=== PATIENT | female | born 1995 | race Caucasian/White ===

== ENCOUNTER 2016-10-24 19:58 | Emergency (ER) | payer OTHER ==
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
--- NOTE | 2016-10-24 21:57 | RAD ---
EXAM DESCRIPTION: XR KNEE 1-2 VIEWS CLINICAL HISTORY: 21-year-old male with right knee pain. No history of injury. COMPARISON: 10/11/2016. TECHNIQUE: Two views of the right knee were obtained in AP, and lateral projections. FINDINGS: There is no fracture or dislocation. The joint spaces are preserved. No soft tissue abnormalities are seen. IMPRESSION: No acute radiographic abnormality. Electronically signed by: Lacie Chapin MD 10/24/2016 21:55
[2016-10-24] MEDS ORDERED: IBUPROFEN 200 MG TAB PO ONE (22:05)
[2016-10-24 22:20] VITALS: BP 118/81; TEMP 97.8; O2SAT 99
== END 2016-10-24 22:20 | disposition home or self-care (01) ==
LOC: ER 19:58
DX: M25.561 Pain in right knee (principal); J45.909 Unspecified asthma, uncomplicated; Z87.891 Personal history of nicotine dependence; Z79.899 Other long term (current) drug therapy

== ENCOUNTER → 2016-11-09 | Outpatient (CLI) | payer OTHER ==
--- NOTE | 2016-11-09 14:04 | RAD ---
EXAM DESCRIPTION: Pelvis series. CLINICAL HISTORY: Right hip pain COMPARISON: None. TECHNIQUE: One view was submitted for evaluation. FINDINGS: No fracture, dislocation, or radiopaque foreign body is seen. Pelvic ring appears intact. Soft tissues are unremarkable. IMPRESSION: No significant abnormality. Electronically signed by: Geoffrey Gonzales MD 11/09/2016 14:03
== END ==
LOC: RAD 08:11
PROVIDERS: ATTEND Orthopaedic Surgery
DX: M25.551 Pain in right hip (principal)

== ENCOUNTER → 2017-01-11 | Outpatient (CLI) | payer OTHER ==
--- NOTE | 2017-01-13 22:24 | MRI ---
MRI right knee without contrast INDICATION: Right knee pain foot numbness internal derangement of knee TECHNIQUE: Noncontrast MR imaging right knee standard protocol FINDINGS: There is a small to moderate joint effusion. The common peroneal nerve appears intact. Normal patellofemoral alignment. Cruciate ligaments are intact. Extensor tendons are intact. No discrete meniscal tear. No focal high-grade chondral lesions. Collateral ligaments are intact. IMPRESSION: Small to moderate joint effusion No high-grade chondral lesions No acute internal derangement Electronically signed by: Navjot Warren MD 01/13/2017 10:23 PM CDT
== END | disposition home or self-care (01) ==
LOC: MRI 13:55
PROVIDERS: ATTEND Orthopaedic Surgery
DX: M23.91 Unspecified internal derangement of right knee (principal)

== ENCOUNTER → 2017-03-08 | Outpatient (CLI) | payer OTHER | END | disposition home or self-care (01) | LOC: LAB.O 14:56 | PROVIDERS: ATTEND Obstetrics & Gynecology | DX: R23.2 Flushing (principal); R79.9 Abnormal finding of blood chemistry, unspecified ==

== ENCOUNTER 2017-03-25 14:08 | Emergency (ER) | payer OTHER ==
[2017-03-25] MEDS ORDERED: TETANUS,DIPHTHERIA,PERTUSSIS 1 EA SYG IM ONE (14:41)
--- NOTE | 2017-03-25 14:44 | ED.PDOC ---
History of Present Illness - General Chief Complaint: Upper Extremity Injury Stated Complaint: cut thumb of left hand Time Seen by Provider: 03/25/17 14:10 Source: patient Exam Limitations: no limitations - History of Present Illness Initial Comments: The patient is a 22-year-old female presenting to the emergency room due to a 4 mm laceration to the inner aspect of her distal left thumb. No significant loss of sensation. The wound is largely hemostatic by time of arrival. Estimated blood loss prior approximately 5 cc. She is not up-to-date on tetanus. 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 Timing/Duration: momentarily Severity: mild Improving Factors: nothing Worsening Factors: nothing Associated Symptoms: denies symptoms Allergies/Adverse Reactions: Allergies NO KNOWN ALLERGY Allergy (Verified 10/24/16 20:16) Home Medications: Ambulatory Orders Control Pill 10/09/16 Prednisone [Deltasone] 20 mg PO DAILY #5 tab 10/09/16 Naproxen [Naprosyn] 500 mg PO BID #30 tab 10/24/16 Review of Systems - Review of Systems Constitutional: States: no symptoms reported EENTM: States: no symptoms reported Respiratory: States: no symptoms reported Cardiology: States: no symptoms reported Gastrointestinal/Abdominal: States: no symptoms reported Genitourinary: States: no symptoms reported Musculoskeletal: States: no symptoms reported Skin: States: see HPI Neurological: States: no symptoms reported Endocrine: States: no symptoms reported All other Systems: No Change from Baseline Past Medical History (General) - Patient Medical History Hx Asthma: Yes Hx Congestive Heart Failure: No Hx Hypertension: No Hx Diabetes: No - Vaccination History Hx Tetanus, Diphtheria Vaccination: No Hx Influenza Vaccination: No Hx Pneumococcal Vaccination: No - Social History Hx Tobacco Use: Yes Hx Alcohol Use: Yes Hx Substance Use: No Hx Substance Use Treatment: No Hx Depression: No - Female History Patient : No Family Medical History - Family History Mother Family History: Unknown Living Status: Unknown Hx Family Asthma: Yes - brother Physical Exam - Physical Exam General Appearance: Alert, Comfortable, No apparent distress Eye Exam: bilateral normal Ears, Nose, Throat: hearing grossly normal Neck: full range of motion Respiratory: no respiratory distress, no accessory muscle use Cardiovascular/Chest: normal peripheral pulses, no edema, other - regular rate Peripheral Pulses: radial,right: 2+, radial,left: 2+ Rectal Exam: deferred Extremity: normal range of motion, no pedal edema, normal capillary refill Neurologic: alert, normal mood/affect, oriented x 3 Skin Exam: normal color - ith the exception of the laceration as described above Progress - Progress Progress: 03/25/17 14:44 the patient is a 22-year-old female sustaining a 4 mm laceration to the inner aspect of her left distal thumb. The wound was cleaned and a Steri- Strip was applied for closure. The patient needs to keep it dry for 24 hours. Tetanus injection was given due to the patient being past due. ER warnings were given for any worsening. Monitor for any evidence of infection. Steri- Strip can come off in around a week. Departure - Departure Clinical Impression: Laceration of finger Qualifiers: Encounter type: initial encounter Qualified Code(s): S61.219A - Laceration without foreign body of unspecified finger without damage to nail, initial encounter Disposition: Discharge to Home or Self Care Condition: Fair Departure Forms: ED Discharge - Pt. Copy, Patient Portal Self Enrollment Instructions: DI for Laceration Repair -- Simple Diet: regular diet Activity: increase activity as tolerated Referrals: Ryanne John NP [Primary Care Provider] - 1-2 Weeks Home Medications: Ambulatory Orders Control Pill 10/09/16 Prednisone [Deltasone] 20 mg PO DAILY #5 tab 10/09/16 Naproxen [Naprosyn] 500 mg PO BID #30 tab 10/24/16 Additional Instructions: the patient is a 22-year-old female sustaining a 4 mm laceration to the inner aspect of her left distal thumb. The wound was cleaned and a Steri- Strip was applied for closure. The patient needs to keep it dry for 24 hours. Tetanus injection was given due to the patient being past due. ER warnings were given for any worsening. Monitor for any evidence of infection. Steri- Strip can come off in around a week.
[2017-03-25 14:47] VITALS: BP 118/76; TEMP 98.5; O2SAT 99
== END 2017-03-25 15:20 | disposition home or self-care (01) ==
LOC: ER 14:08
DX: S61.012A Laceration without foreign body of left thumb without damage to nail, initial encounter (principal); Z23 Encounter for immunization; Z87.891 Personal history of nicotine dependence; W26.0XXA Contact with knife, initial encounter; Y93.G1 Activity, food preparation and clean up; Y92.009 Unspecified place in unspecified non-institutional (private) residence as the place of occurrence of the external cause; Y99.0 Civilian activity done for income or pay

== ENCOUNTER → 2017-04-12 | Outpatient (CLI) | payer OTHER ==
--- NOTE | 2017-04-14 07:39 | RAD ---
Procedure: XR CHEST 2 VIEWS Exam Date: 04/12/2017 Ordering Provider: Kavitha Collins Clinical Indication: ASTHMA ATTACK. DECREASED LUNG SOUNDS. R09.89 Comparison: 08/21/2006 Findings: Cardiac silhouette: Normal Pulmonary vasculature : Normal Mediastinal contour: Normal Aortic contour: Normal Focal lung consolidation: None Pleural effusion: None Pneumothorax: None Acute bony or soft tissue abnormality: None Impression: 1. No acute abnormalities in the chest. Electronically signed by: Mark Montalvo MD 04/14/2017 7:38 AM CDT
== END | disposition home or self-care (01) ==
LOC: RAD 16:59
PROVIDERS: ATTEND Nurse Practitioner Family
DX: J45.909 Unspecified asthma, uncomplicated (principal); R09.89 Other specified symptoms and signs involving the circulatory and respiratory systems

== ENCOUNTER 2017-07-19 19:33 | Emergency (ER) | payer OTHER ==
--- NOTE | 2017-07-19 19:55 | ED.PDOC ---
History of Present Illness - General Time Seen by Provider: 07/19/17 19:48 Source: patient Exam Limitations: no limitations - History of Present Illness Initial Comments: Patient presents with increasing menstrual pain. She says that for the last several months, it has been worse with each cycle. She has tried tylenol and ibuprofen with no luck. She just started her menses today and says that the pain was so bad that she couldn't stand it. She does have a gynecology appointment in three days. is a . No other complaints. Timing/Duration: changing over time Severity: moderate Improving Factors: nothing Worsening Factors: nothing Associated Symptoms: denies symptoms Allergies/Adverse Reactions: Allergies NO KNOWN ALLERGY Allergy (Verified 07/19/17 20:07) Home Medications: Ambulatory Orders Control Pill 10/09/16 Ketorolac Tromethamine [Toradol Tabs] 10 mg PO Q6HR PRN #14 tab 07/19/17 Review of Systems - Review of Systems Constitutional: States: no symptoms reported EENTM: States: no symptoms reported Respiratory: States: no symptoms reported Cardiology: States: no symptoms reported Gastrointestinal/Abdominal: States: no symptoms reported Genitourinary: States: see HPI Musculoskeletal: States: no symptoms reported Skin: States: no symptoms reported Neurological: States: no symptoms reported Endocrine: States: no symptoms reported Hematologic/Lymphatic: States: no symptoms reported Past Medical History (General) - Patient Medical History Hx Asthma: Yes Hx Congestive Heart Failure: No Hx Hypertension: No Hx Diabetes: No - Vaccination History Hx Tetanus, Diphtheria Vaccination: No Hx Influenza Vaccination: No Hx Pneumococcal Vaccination: No - Social History Hx Tobacco Use: Yes Hx Alcohol Use: Yes Hx Substance Use: No Hx Substance Use Treatment: No Hx Depression: No - Female History Patient : No Family Medical History - Family History Mother Family History: Unknown Living Status: Unknown Hx Family Asthma: Yes - brother Physical Exam - Physical Exam General Appearance: Alert Respiratory: lungs clear Cardiovascular/Chest: normal peripheral pulses, regular rate, rhythm Gastrointestinal/Abdominal: normal bowel sounds, tenderness - TTP over bladder Back Exam: no CVA tenderness Progress - Progress Progress: 07/19/17 20:37 Toradol 30 mg IM x one significantly reduced the pain. Departure - Departure Clinical Impression: Menstrual pain Disposition: Discharge to Home or Self Care Condition: Good Diet: resume usual diet Activity: increase activity as tolerated Referrals: Ryanne John NP [Primary Care Provider] - 1-2 Weeks Prescriptions: Ketorolac Tromethamine [Toradol Tabs] 10 mg PO Q6HR PRN #14 tab PRN Reason: Pain Home Medications: Ambulatory Orders Control Pill 10/09/16 Ketorolac Tromethamine [Toradol Tabs] 10 mg PO Q6HR PRN #14 tab 07/19/17 Additional Instructions: See your rn delivery as scheduled on saturday.
[2017-07-19] MEDS ORDERED: KETOROLAC TROMETHAMINE INJ 30 MG/ML VIAL IM ONE (19:56)
[2017-07-19 20:07] VITALS: TEMP 98.5
[2017-07-19 20:48] VITALS: BP 115/84; O2SAT 99
== END 2017-07-19 20:48 | disposition home or self-care (01) ==
LOC: ER 19:33
DX: N94.6 Dysmenorrhea, unspecified (principal); Z87.891 Personal history of nicotine dependence
CPT/HCPCS: 81001; 81025; 87086; J1885

== ENCOUNTER 2017-09-01 06:48 | Emergency (ER) | payer OTHER ==
[2017-09-01 07:14] VITALS: TEMP 99
[2017-09-01] MEDS ORDERED: SODIUM CHLORIDE 0.9% 1000ML 1,000 ML IVS ONE (07:19)
[2017-09-01] MEDS ORDERED: ONDANSETRON INJ 4 MG/2 ML VIAL IV ONE (07:19)
--- NOTE | 2017-09-01 07:23 | ED.PDOC ---
History of Present Illness - General Chief Complaint: General Stated Complaint: feeling hot and nauseous last few days Time Seen by Provider: 09/01/17 07:18 Source: patient, RN notes reviewed, Vital Signs reviewed Exam Limitations: no limitations - History of Present Illness Initial Comments: Patient comes in with c/o of just not feeling right since she had surgery. She had an exploratory lap with PERINATOLOGY PHYSICIAN on 08/27/17. She also had an IUD placed at that time. She went to the office later in the week with c/o dysuria and hematuria. She was told her urine dip was fine and that her symptoms were related to the IUD placement and should resolve. For the past few days she has been feeling nauseated, hot and having some mid back pain. Reports the dysuria and bleeding has improved but still having urinary frequency. Timing/Duration: getting worse - over past 5 days Severity: moderate Improving Factors: nothing Worsening Factors: nothing Associated Symptoms: fever/chills, malaise, nausea/vomiting, rash Allergies/Adverse Reactions: Allergies NO KNOWN ALLERGY Allergy (Verified 07/19/17 20:07) Home Medications: Ambulatory Orders Control Pill 10/09/16 Ketorolac Tromethamine [Toradol Tabs] 10 mg PO Q6HR PRN #14 tab 07/19/17 Ciprofloxacin [Cipro] 500 mg PO BID #14 tab 09/01/17 Ondansetron Odt [Zofran ODT] 8 mg PO Q6HR PRN #12 tab 09/01/17 Review of Systems - Review of Systems Constitutional: States: fever, malaise EENTM: States: no symptoms reported Respiratory: States: no symptoms reported Cardiology: States: no symptoms reported Gastrointestinal/Abdominal: States: see HPI, abdominal pain, nausea, vomiting. Denies: constipation, diarrhea Genitourinary: States: see HPI, dysuria, frequency, hematuria Musculoskeletal: States: back pain Skin: States: rash - itchy, on abdomen Neurological: States: no symptoms reported. Denies: headache All other Systems: No Change from Baseline Past Medical History (General) - Patient Medical History Hx Asthma: Yes Hx Cardiac Disorders: No Hx Congestive Heart Failure: No Hx Hypertension: No Hx Diabetes: No Surgical History: tonsillectomy - Vaccination History Hx Tetanus, Diphtheria Vaccination: No Hx Influenza Vaccination: No Hx Pneumococcal Vaccination: No - Social History Hx Tobacco Use: Yes Hx Alcohol Use: Yes Hx Substance Use: No Hx Substance Use Treatment: No Hx Depression: No - Female History Patient : No Family Medical History - Family History Mother Family History: Unknown Living Status: Unknown Hx Family Asthma: Yes - brother Physical Exam - Physical Exam General Appearance: Alert, Anxious, No apparent distress, Well Developed, Well Groomed, Well Hydrated, Well Nourished Eye Exam: bilateral normal Ears, Nose, Throat: hearing grossly normal Neck: non-tender, full range of motion, supple, normal inspection Respiratory: lungs clear, normal breath sounds, no respiratory distress, no accessory muscle use Cardiovascular/Chest: no edema, no gallop, no JVD, no murmur, tachycardia Gastrointestinal/Abdominal: normal bowel sounds, soft, no organomegaly, tenderness - Mild tenderness over surgical incisions only. Petechial rash - linear, consistent with where drapes were placed during surgery. Back Exam: no vertebral tenderness, CVA tenderness (R), CVA tenderness (L) Extremity: normal range of motion, normal inspection Neurologic: alert, normal mood/affect, oriented x 3 Skin Exam: normal color - except as noted above, warm/dry Comments: Vital Signs 09/01/17 07:10 Temperature 99.0 F Pulse Rate [ 111 H left brachial] Respiratory 20 Rate Blood Pressure 121/88 [left brachial] O2 Sat by Pulse 99 Oximetry Progress - Progress Progress: 09/01/17 08:34 Suspect Pyelonephritis but labs are benign. Given symptoms and recent abdominal surgery with get CT scan of Abd/Pelvis 09/01/17 09:46 CT shows a L ovarian cyst and expected post-surgical changes w/ no acute findings for infection. Will treat imperically for Pyelonephritis with Cipro and Zofran and send urine for culture. Patient is agreeable with plan. - Results/Orders Results/Orders: Laboratory Tests 09/01/17 09/01/17 09/01/17 07:20 07:46 07:46 WBC 6.1 RBC 3.72 L Hgb 12.5 Hct 36.0 MCV 96.6 MCH 33.6 H MCHC 34.9 RDW 12.5 Plt Count 151 MPV 10.0 Absolute Neuts (auto) 4.00 Absolute Lymphs (auto) 1.50 Absolute Monos (auto) 0.50 Absolute Eos (auto) 0.10 Absolute Basos (auto) 0.00 Neutrophils % 65.9 Lymphocytes % 24.5 Monocytes % 7.7 Eosinophils % 1.4 Basophils % 0.5 Sodium 139 Potassium 4.0 Chloride 107 Carbon Dioxide 28 Anion Gap 8.0 L BUN 13 Creatinine 0.67 BUN/Creatinine Ratio 19.4 Random Glucose 111 H Serum Osmolality 278.3 Calcium 9.3 Total Bilirubin 0.3 AST 12 ALT 11 Alkaline Phosphatase 41 L Serum Total Protein 7.1 Albumin 4.3 Globulin 2.8 Albumin/Globulin Ratio 1.5 Urine Color Yellow Urine Appearance Clear Urine pH 6.0 Ur Specific [place] 1.025 Urine Protein Negative Urine Glucose (UA) Negative Urine Ketones Negative Urine Blood Trace-intact H Urine Nitrite Negative Urine Bilirubin Negative Urine Urobilinogen 0.2 Ur Leukocyte Esterase Negative Urine RBC 0-1 Urine WBC 0 Ur Epithelial Cells 3-5 Urine Bacteria 0 Urine HCG, Qual 09/01/17 08:44 WBC RBC Hgb Hct MCV MCH MCHC RDW Plt Count MPV Absolute Neuts (auto) Absolute Lymphs (auto) Absolute Monos (auto) Absolute Eos (auto) Absolute Basos (auto) Neutrophils % Lymphocytes % Monocytes % Eosinophils % Basophils % Sodium Potassium Chloride Carbon Dioxide Anion Gap BUN Creatinine BUN/Creatinine Ratio Random Glucose Serum Osmolality Calcium Total Bilirubin AST ALT Alkaline Phosphatase Serum Total Protein Albumin Globulin Albumin/Globulin Ratio Urine Color Urine Appearance Urine pH Ur Specific [place] Urine Protein Urine Glucose (UA) Urine Ketones Urine Blood Urine Nitrite Urine Bilirubin Urine Urobilinogen Ur Leukocyte Esterase Urine RBC Urine WBC Ur Epithelial Cells Urine Bacteria Urine HCG, Qual Negative - EKG/XRAY/CT CT Ordered: Yes CT Interpretation Call Back: Yes - See above Departure - Departure Clinical Impression: Urinary tract infection Qualifiers: Urinary tract infection type: acute pyelonephritis Qualified Code(s): N10 - Acute pyelonephritis Time of Disposition: 09:49 Disposition: Discharge to Home or Self Care Condition: Good Departure Forms: ED Discharge - Pt. Copy, Patient Portal Self Enrollment Instructions: DI for Kidney Infection Diet: resume usual diet Activity: increase activity as tolerated Referrals: Ryanne John NP [Primary Care Provider] - 1-2 Weeks Prescriptions: Ondansetron Odt [Zofran ODT] 8 mg PO Q6HR PRN #12 tab PRN Reason: Nausea/Vomiting Ciprofloxacin [Cipro] 500 mg PO BID #14 tab Home Medications: Ambulatory Orders Control Pill 10/09/16 Ketorolac Tromethamine [Toradol Tabs] 10 mg PO Q6HR PRN #14 tab 07/19/17 Ciprofloxacin [Cipro] 500 mg PO BID #14 tab 09/01/17 Ondansetron Odt [Zofran ODT] 8 mg PO Q6HR PRN #12 tab 09/01/17
--- NOTE | 2017-09-01 09:36 | CT ---
EXAM DESCRIPTION: Abdomen/Pelvis w/Contrast CLINICAL HISTORY: Fever, back pain, recent abd surgery COMPARISON: 08/07/2011 TECHNIQUE: CT of the abdomen and pelvis was performed multiplanar reformatted images. Multiple axial images and multiplanar reconstructions were generated. This exam was performed according to our departmental dose-optimization program, which includes automated exposure control, adjustment of the mA and/or kV according to patient size and/or use of iterative reconstruction technique. FINDINGS: Lung bases: The visualized lung bases are clear. Solid organs: The liver, gallbladder, spleen, pancreas, kidneys, and adrenal glands are unremarkable. Gastrointestinal: The stomach and small intestine are unremarkable. There are operative changes about the cecum likely from prior appendectomy. There is a tiny focus of intraperitoneal free air in the right upper abdomen along the anterior hepatic margin. No intra-abdominal fluid collection. Vascular: Normal. Lymph nodes: No pathologically enlarged lymph nodes are present by CT size criteria. Musculoskeletal and soft tissues: No destructive osseous lesions are present. Urinary bladder and pelvic organs: The urinary bladder is normal. And IUD is present in the endometrial canal. There is a 2.3 cm left ovarian cystic lesion with a hyperenhancing wall. IMPRESSION: 1. Trace intraperitoneal free air. The patient reportedly had laparoscopic surgery on 08/27/2017, and this is consistent with a recent operative state. 2. Otherwise no acute abdominal or pelvic CT findings. 3. Operative changes as described above. 4. Left ovarian cystic lesion with hyperenhancing wall. Pelvic ultrasound may further characterize. Findings called to Dr. Geri James on 09/01/2017 at 0930 hours. Electronically signed by: Rigo Nielson MD 09/01/2017 9:35 AM OPERATIONS MANAGER/COORDINATOR Workstation: [id number]
[2017-09-01] MEDS ORDERED: CIPROFLOXACIN 500 MG TAB PO ONE (09:42)
[2017-09-01 10:10] VITALS: BP 105/70; O2SAT 100
== END 2017-09-01 10:26 | disposition home or self-care (01) ==
LOC: ER 06:48
DX: N10 Acute pyelonephritis (principal); Z87.891 Personal history of nicotine dependence
CPT/HCPCS: 36415; 74177; 80053; 81001; 81025; 85025; 87086; J2405; J7030

== ENCOUNTER 2017-12-06 02:12 | Emergency (ER) | payer OTHER ==
--- NOTE | 2017-12-06 02:45 | ED.PDOC ---
History of Present Illness - General Chief Complaint: Problem Stated Complaint: pain in lower abd Time Seen by Provider: 12/06/17 02:32 Source: patient Exam Limitations: no limitations - History of Present Illness Initial Comments: The patient's 22-year-old female presenting to the emergency room secondary to symptoms of pelvic pain that started approximately 24-36 hours ago. The patient does have a long-standing history of chronic recurrent pelvic pain. he states that she was diagnosed with endometriosis about 6 months ago. She had a Mirena IUD placed a year or 2 ago and has had chronic pain from that she believes since that time. No significant new vaginal discharge. No fever. She does have significant dysuria and this is a recurrent issue though no infections are found. She does have an REGULATORY ATTORNEY that she follows with. She wants the IUD out. Timing/Duration: unsure Severity: severe Improving Factors: nothing Worsening Factors: nothing Associated Symptoms: denies symptoms Allergies/Adverse Reactions: Allergies NO KNOWN ALLERGY Allergy (Verified 12/06/17 02:32) Home Medications: Ambulatory Orders Control Pill 10/09/16 Ketorolac Tromethamine [Toradol Tabs] 10 mg PO Q6HR PRN #14 tab 07/19/17 Ciprofloxacin [Cipro] 500 mg PO BID #14 tab 09/01/17 Ondansetron Odt [Zofran ODT] 8 mg PO Q6HR PRN #12 tab 09/01/17 Review of Systems - Review of Systems Constitutional: States: no symptoms reported EENTM: States: no symptoms reported Respiratory: States: no symptoms reported Cardiology: States: no symptoms reported Gastrointestinal/Abdominal: States: abdominal pain Genitourinary: States: dysuria, pain Musculoskeletal: States: no symptoms reported Skin: States: no symptoms reported Neurological: States: no symptoms reported Endocrine: States: no symptoms reported All other Systems: No Change from Baseline Past Medical History (General) - Patient Medical History Hx Asthma: Yes Hx Cardiac Disorders: No Hx Congestive Heart Failure: No Hx Hypertension: No Hx Diabetes: No Surgical History: tonsillectomy, other - Vaccination History Hx Tetanus, Diphtheria Vaccination: No Hx Influenza Vaccination: No Hx Pneumococcal Vaccination: No - Social History Hx Tobacco Use: Yes Hx Alcohol Use: Yes Hx Substance Use: No Hx Substance Use Treatment: No Hx Depression: No - Female History Patient : No Family Medical History - Family History Mother Family History: Unknown Living Status: Unknown Hx Family Asthma: Yes - brother Physical Exam - Physical Exam General Appearance: Alert, Anxious, No apparent distress Eye Exam: bilateral normal Ears, Nose, Throat: hearing grossly normal, normal pharynx Neck: full range of motion, supple Respiratory: lungs clear, normal breath sounds, no respiratory distress, no accessory muscle use Cardiovascular/Chest: normal peripheral pulses, regular rate, rhythm, no edema Peripheral Pulses: radial,right: 2+, radial,left: 2+, dorsalis pedis,right: 2+, dorsalis pedis,left: 2+ Gastrointestinal/Abdominal: non tender, soft Rectal Exam: deferred, other - pelvic exam shows moderate discomfort with the speculum exam. Mild increase in discharge. No definite cervical motion tenderness. Strings from IUD are not visible and are not retrievable within the cervical os. Back Exam: normal inspection, no CVA tenderness, no vertebral tenderness Extremity: normal range of motion, non-tender, normal inspection, no pedal edema , normal capillary refill Neurologic: registered vascular technologist (rvt) II-XII nml as tested, alert, normal mood/affect, oriented x 3 Skin Exam: normal color Comments: Vital Signs - 24 hr 12/06/17 02:20 Temperature 98.7 F Pulse Rate [ 101 H left] Respiratory 20 Rate Blood Pressure 121/89 [left] O2 Sat by Pulse 98 Oximetry Progress - Progress Progress: 12/06/17 04:21 the patient's 22-year-old female presenting to the emergency room secondary to pelvic pain over the last 24 hours. She does have a history of endometriosis. She has not had any vaginal bleeding but this may be pain associated with the start of the next menstrual cycle. The patient can take Motrin every 6 hours for the next couple of days as needed. She does possibly have mild bacterial vaginosis and did receive a one-time dosing of metronidazole here today. She does want to have her IUD removed and she needs to discuss this with her product examiner. It is likely helping with her endometriosis. ER warnings were given for any significant worsening. testing for gonorrhea and chlamydia are sent out labs. I do not believe that this is pelvic inflammatory disease. 12/06/17 04:23 - Results/Orders Results/Orders: 12/06/17 03:44 GC CHLAMYDIA RNA,TMA Stat ending at this time Laboratory Results - last 24 hr 12/06/17 12/06/17 02:43 02:49 Urine Color Yellow Urine Appearance Clear Urine pH 5.0 Ur Specific [place] >= 1.030 Urine Protein Negative Urine Glucose (UA) Negative Urine Ketones Negative Urine Blood Trace-lysed H Urine Nitrite Negative Urine Bilirubin Negative Urine Urobilinogen 0.2 Ur Leukocyte Esterase Negative Urine RBC 0-1 Urine WBC 3-5 H Ur Epithelial Cells 5-10 Urine Bacteria Rare Urine Mucus Moderate Urine HCG, Qual Negative wet prep is mildly positive for bacterial vaginosis Departure - Departure Clinical Impression: Chronic female pelvic pain Disposition: Discharge to Home or Self Care Condition: Fair Departure Forms: ED Discharge - Pt. Copy, Patient Portal Self Enrollment Instructions: DI for Pelvic Pain Diet: regular diet Activity: increase activity as tolerated Referrals: Kavitha Collins NP [Primary Care Provider] - 1-2 Weeks Home Medications: Ambulatory Orders Control Pill 10/09/16 Ketorolac Tromethamine [Toradol Tabs] 10 mg PO Q6HR PRN #14 tab 07/19/17 Ciprofloxacin [Cipro] 500 mg PO BID #14 tab 09/01/17 Ondansetron Odt [Zofran ODT] 8 mg PO Q6HR PRN #12 tab 09/01/17 Additional Instructions: the patient's 22-year-old female presenting to the emergency room secondary to pelvic pain over the last 24 hours. She does have a history of endometriosis. She has not had any vaginal bleeding but this may be pain associated with the start of the next menstrual cycle. The patient can take Motrin every 6 hours for the next couple of days as needed. She does possibly have mild bacterial vaginosis and did receive a one-time dosing of metronidazole here today. She does want to have her IUD removed and she needs to discuss this with her product examiner. It is likely helping with her endometriosis. ER warnings were given for any significant worsening. testing for gonorrhea and chlamydia are sent out labs. I do not believe that this is pelvic inflammatory disease. exercise is also recommended to help reduce pelvic pain.
[2017-12-06] MEDS ORDERED: IBUPROFEN 200 MG TAB PO ONE (04:16)
[2017-12-06] MEDS ORDERED: metroNIDAZOLE 500 MG TAB PO ONE (04:16)
[2017-12-06 04:39] VITALS: BP 127/88; TEMP 98; O2SAT 99
== END 2017-12-06 04:39 | disposition home or self-care (01) ==
LOC: ER 02:12
DX: G89.29 Other chronic pain (principal); R10.2 Pelvic and perineal pain; Z87.891 Personal history of nicotine dependence; Z97.5 Presence of (intrauterine) contraceptive device; N80.9 Endometriosis, unspecified

== ENCOUNTER 2018-04-04 14:31 | Emergency (ER) | payer OTHER ==
[2018-04-04 14:47] VITALS: TEMP 99.4
--- NOTE | 2018-04-04 14:53 | ED.PDOC ---
History of Present Illness - General Chief Complaint: Chest Pain/NE Stated Complaint: chest pain Time Seen by Provider: 04/04/18 14:34 Source: patient Exam Limitations: no limitations - History of Present Illness Initial Comments: the patient is a 23-year-old female presenting to the emergency room secondary to progressive anterior chest wall pain over the last 2 weeks. She does not remember injuring herself but anytime that she turns over, bends over, takes a deep breath, coughs or pushes something away from her body she has sharp anterior chest pain that is relieved immediately after stopping stopping that motion. No fevers. No productive cough. She has asthma but it has been well controlled. No sore throat. No recent medication changes. No history of any DVT or pulmonary emboli. She is saturating well currently. No trauma. No history of any autoimmune disease. No history of any coronary artery disease. She denies illicit drug use. Timing/Duration: unsure Severity: moderate Improving Factors: immobilization Worsening Factors: movement Associated Symptoms: denies symptoms Allergies/Adverse Reactions: Allergies NO KNOWN ALLERGY Allergy (Verified 04/04/18 14:41) Home Medications: Ambulatory Orders Albuterol Inhaler [Ventolin Hfa Inhaler] 1 puff INH 04/04/18 Cyclobenzaprine HCl [Flexeril] 5 mg PO TID PRN #30 tab 04/04/18 Fluticasone/Salmeterol 250/50 [Advair Diskus] 1 puff INH 04/04/18 predniSONE [Prednisone] 20 mg PO DAILY #7 tab 04/04/18 Review of Systems - Review of Systems Constitutional: States: no symptoms reported EENTM: States: no symptoms reported Respiratory: States: no symptoms reported Cardiology: States: chest pain Gastrointestinal/Abdominal: States: no symptoms reported Genitourinary: States: no symptoms reported Musculoskeletal: States: no symptoms reported Skin: States: no symptoms reported Neurological: States: no symptoms reported Endocrine: States: no symptoms reported All other Systems: No Change from Baseline Past Medical History (General) - Patient Medical History Hx Asthma: Yes Hx Cardiac Disorders: No Hx Congestive Heart Failure: No Hx Hypertension: No Hx Diabetes: No Surgical History: appendectomy, tonsillectomy - Vaccination History Hx Tetanus, Diphtheria Vaccination: No Hx Influenza Vaccination: No Hx Pneumococcal Vaccination: No - Social History Hx Tobacco Use: Yes Hx Alcohol Use: Yes Hx Substance Use: No Hx Substance Use Treatment: No Hx Depression: No - Female History Patient : No Family Medical History - Family History Mother Family History: Unknown Living Status: Unknown Hx Family Asthma: Yes - brother Physical Exam - Physical Exam General Appearance: Alert, Comfortable, No apparent distress Eye Exam: bilateral normal Ears, Nose, Throat: hearing grossly normal, normal ENT inspection, normal pharynx Neck: full range of motion, supple, normal inspection Respiratory: lungs clear, normal breath sounds, no respiratory distress, no accessory muscle use, other - anterior parasternal chest wall tenderness to palpation Cardiovascular/Chest: normal peripheral pulses, regular rate, rhythm, no edema Peripheral Pulses: radial,right: 2+, radial,left: 2+, dorsalis pedis,right: 2+, dorsalis pedis,left: 2+ Gastrointestinal/Abdominal: non tender, soft Rectal Exam: deferred Back Exam: no CVA tenderness, no vertebral tenderness Extremity: non-tender, normal inspection, no pedal edema, normal capillary refill Neurologic: mortgage branch manager II-XII nml as tested, alert, normal mood/affect, oriented x 3 Skin Exam: normal color Comments: Vital Signs - 24 hr 04/04/18 04/04/18 14:43 14:47 Temperature 99.4 F Pulse Rate [ 84 84 MONITOR] Respiratory 20 20 Rate Blood Pressure 140/82 [LA] O2 Sat by Pulse 100 Oximetry Progress - Progress Progress: 04/04/18 14:54 the patient is a 23-year-old female presenting with a clinical picture that is very consistent with costochondritis. The patient will be placed on prednisone 20 mg daily for the next week. She is to continue her asthma medications. She will also be written for Flexeril for as needed use for any muscle spasm. She does need to return to the emergency room for any significant worsening of symptoms in spite of treatment including fever or development of a productive cough. She should otherwise plan on following up with her primary care doctor next week. She does need to keep herself well hydrated to help reduce body aches. ER warnings were given. Departure - Departure Clinical Impression: Costochondritis, acute Disposition: Discharge to Home or Self Care Condition: Fair Departure Forms: ED Discharge - Pt. Copy, Patient Portal Self Enrollment Instructions: DI for Costochondritis Diet: regular diet Activity: increase activity as tolerated Referrals: Kavitha Collins NP [Primary Care Provider] - 1-5 Days Prescriptions: Cyclobenzaprine HCl [Flexeril] 5 mg PO TID PRN #30 tab PRN Reason: Muscle Spasms predniSONE [Prednisone] 20 mg PO DAILY #7 tab Home Medications: Ambulatory Orders Albuterol Inhaler [Ventolin Hfa Inhaler] 1 puff INH 04/04/18 Cyclobenzaprine HCl [Flexeril] 5 mg PO TID PRN #30 tab 04/04/18 Fluticasone/Salmeterol 250/50 [Advair Diskus] 1 puff INH 04/04/18 predniSONE [Prednisone] 20 mg PO DAILY #7 tab 04/04/18 Additional Instructions: the patient is a 23-year-old female presenting with a clinical picture that is very consistent with costochondritis. The patient will be placed on prednisone 20 mg daily for the next week. She is to continue her asthma medications. She will also be written for Flexeril for as needed use for any muscle spasm. She does need to return to the emergency room for any significant worsening of symptoms in spite of treatment including fever or development of a productive cough. She should otherwise plan on following up with her primary care doctor next week. She does need to keep herself well hydrated to help reduce body aches. ER warnings were given.
[2018-04-04 15:08] VITALS: BP 119/75; O2SAT 99
== END 2018-04-04 15:02 | disposition home or self-care (01) ==
LOC: ER 14:31
DX: M94.0 Chondrocostal junction syndrome [Tietze] (principal); J45.909 Unspecified asthma, uncomplicated; F17.200 Nicotine dependence, unspecified, uncomplicated; Z79.899 Other long term (current) drug therapy

== ENCOUNTER 2018-06-16 22:56 | Emergency (ER) | payer OTHER ==
[2018-06-16] MEDS ORDERED: SUCRALFATE 1 GM/10 ML 1 GM UD PO ONE (23:21)
[2018-06-16] MEDS ORDERED: PANTOPRAZOLE SODIUM TAB 40 MG PO ONE (23:21)
[2018-06-16] MEDS ORDERED: traMADol HCL 50 MG TAB PO ONE (23:25)
[2018-06-16] MEDS ORDERED: traMADol HCL 50 MG TAB ONE (23:26)
[2018-06-16] MEDS ORDERED: CYANOCOBALAMIN INJ 1,000 MCG/ML INJ IM ONE (23:32)
[2018-06-16 23:33] VITALS: BP 127/87
--- NOTE | 2018-06-16 23:35 | ED.PDOC ---
History of Present Illness - General Chief Complaint: Chest Pain/HI Stated Complaint: chest wall pain x 1 month Time Seen by Provider: 06/16/18 22:59 Source: patient Exam Limitations: no limitations - History of Present Illness Initial Comments: the patient is a 23-year-old female presenting to the emergency room secondary to worsening reflux symptoms including acid coming up the back of her throat. Additionally she is having some chest wall discomfort again. She does have a history of B12 deficiency and has not been taking her B12 supplement. Her asthma has been fairly well-controlled. No syncope or near syncope. No palpitations. No diarrhea. She denies constipation. No fever. Timing/Duration: unsure Severity: moderate Improving Factors: nothing Worsening Factors: eating Associated Symptoms: chest pain, loss of appetite, malaise, nausea/vomiting Allergies/Adverse Reactions: Allergies NO KNOWN ALLERGY Allergy (Verified 04/04/18 14:41) Home Medications: Ambulatory Orders Albuterol Inhaler [Ventolin Hfa Inhaler] 1 puff INH 04/04/18 Cyclobenzaprine HCl [Flexeril] 5 mg PO TID PRN #30 tab 04/04/18 Fluticasone/Salmeterol 250/50 [Advair Diskus] 1 puff INH 04/04/18 predniSONE [Prednisone] 20 mg PO DAILY #7 tab 04/04/18 Omeprazole 40 mg PO DAILY #90 cap 06/16/18 Sucralfate Tab [Carafate Tab] 1 gm PO QID #120 tab 06/16/18 Tramadol HCl 50 mg PO Q8HR PRN #20 tab 06/16/18 Review of Systems - Review of Systems Constitutional: States: no symptoms reported EENTM: States: no symptoms reported Respiratory: States: no symptoms reported Cardiology: States: chest pain Gastrointestinal/Abdominal: States: nausea Genitourinary: States: no symptoms reported Musculoskeletal: States: see HPI Skin: States: no symptoms reported Neurological: States: anxiety Endocrine: States: no symptoms reported All other Systems: No Change from Baseline Past Medical History (General) - Patient Medical History Hx Asthma: Yes Hx Cardiac Disorders: No Hx Congestive Heart Failure: No Hx Hypertension: No Hx Diabetes: No Surgical History: appendectomy, tonsillectomy - Vaccination History Hx Tetanus, Diphtheria Vaccination: No Hx Influenza Vaccination: No Hx Pneumococcal Vaccination: No - Social History Hx Tobacco Use: Yes Hx Alcohol Use: Yes Hx Substance Use: No Hx Substance Use Treatment: No Hx Depression: No - Female History Patient is a Female of Child Bearing Age (10 -59 yrs old): Yes Patient : No - IUD - Triage Comment ED Triage Comment: pain to upper chest with movement for past month. Muscle relaxers helped after last ER visit. States increase in heartburn lately Family Medical History - Family History Mother Family History: Unknown Living Status: Unknown Hx Family Asthma: Yes - brother Physical Exam - Physical Exam General Appearance: Alert, Anxious, No apparent distress Eye Exam: bilateral normal Ears, Nose, Throat: hearing grossly normal, normal ENT inspection, normal pharynx Neck: full range of motion, supple Respiratory: lungs clear, normal breath sounds, no respiratory distress, no accessory muscle use, other - chest wall is diffusely uncomfortable to palpation anteriorly and she does have pain with any movement. Cardiovascular/Chest: normal peripheral pulses, regular rate, rhythm, no edema Peripheral Pulses: radial,right: 2+, radial,left: 2+, dorsalis pedis,right: 2+, dorsalis pedis,left: 2+ Gastrointestinal/Abdominal: soft, other - mild epigastric discomfort palpation but no rebound or peritoneal signs and no definite palpable mass Rectal Exam: deferred Back Exam: normal inspection, no CVA tenderness Extremity: normal range of motion, non-tender, normal inspection, no pedal edema , normal capillary refill Neurologic: director of retail analytics II-XII nml as tested, alert, normal mood/affect, oriented x 3 Skin Exam: normal color Comments: Vital Signs - 24 hr 06/16/18 06/16/18 23:10 23:32 Temperature 99.7 F H Pulse Rate [ 96 H 88 Right] Respiratory 18 Rate Blood Pressure 143/88 127/87 [Left Arm] O2 Sat by Pulse 100 99 Oximetry Progress - Progress Progress: 06/16/18 23:35 the patient is a 23-year-old female presenting to the emergency room secondary to recurrence of anterior chest wall pain along with worsening symptoms of gastroesophageal reflux disease and esophagitis. Looking back over her fairly extensive history here at the hospital and the multiple studies have been performed in the past I think that the chest wall discomfort is being caused by tensing up with the patient during the night in order to reduce her reflux issues. Additionally the patient does have a history of some B12 deficiency. The patient is going to be dosed with 1 injection of B12. She does need to start an oral supplement and have the level checked in 2-3 months. For the gastritis she is going to be placed on Carafate for 1 month and omeprazole for the next 3 months. She needs to avoid eating immediately before bed. If she can raise the head of her bed about 4-6 inches this may also help reduce reflux issues. She needs to avoid large meals and hot or spicy foods for now. She needs to keep herself well-hydrated. She needs to follow-up with her primary care doctor in a couple of weeks. if symptoms are persisting or worsening in spite of the above management and additional workup including possibly a GI evaluation may be warranted. ER warnings were given for any significant worsening. Departure - Departure Clinical Impression: Anterior chest wall pain Gastroesophageal reflux Qualifiers: Esophagitis presence: with esophagitis Qualified Code(s): K21.0 - Gastro- esophageal reflux disease with esophagitis Disposition: Discharge to Home or Self Care Condition: Fair Departure Forms: ED Discharge - Pt. Copy, Patient Portal Self Enrollment Instructions: Acid Reflux (Gastroesophageal Reflux Disease) in Adults, Vitamin B12 Deficiency (DC) Diet: bland diet Activity: increase activity as tolerated Referrals: Kavitha Collins NP [Primary Care Provider] - 1-2 Weeks Prescriptions: Tramadol HCl 50 mg PO Q8HR PRN #20 tab PRN Reason: Chest Pain Omeprazole 40 mg PO DAILY #90 cap Sucralfate Tab [Carafate Tab] 1 gm PO QID #120 tab Home Medications: Ambulatory Orders Albuterol Inhaler [Ventolin Hfa Inhaler] 1 puff INH 04/04/18 Cyclobenzaprine HCl [Flexeril] 5 mg PO TID PRN #30 tab 04/04/18 Fluticasone/Salmeterol 250/50 [Advair Diskus] 1 puff INH 04/04/18 predniSONE [Prednisone] 20 mg PO DAILY #7 tab 04/04/18 Omeprazole 40 mg PO DAILY #90 cap 06/16/18 Sucralfate Tab [Carafate Tab] 1 gm PO QID #120 tab 06/16/18 Tramadol HCl 50 mg PO Q8HR PRN #20 tab 06/16/18 Additional Instructions: the patient is a 23-year-old female presenting to the emergency room secondary to recurrence of anterior chest wall pain along with worsening symptoms of gastroesophageal reflux disease and esophagitis. Looking back over her fairly extensive history here at the hospital and the multiple studies have been performed in the recent past I think that the chest wall discomfort is being caused by tensing up of the patient during the night in order to reduce her reflux issues. Additionally the patient does have a history of some B12 deficiency. The patient is going to be dosed with 1 injection of B12. She does need to start an oral supplement and have the level checked in 2-3 months. For the gastritis she is going to be placed on Carafate for 1 month and omeprazole for the next 3 months. She needs to avoid eating immediately before bed. If she can raise the head of her bed about 4-6 inches this may also help reduce reflux issues. She needs to avoid large meals and hot or spicy foods for now. She needs to keep herself well-hydrated. She needs to follow-up with her primary care doctor in a couple of weeks. if symptoms are persisting or worsening in spite of the above management and additional workup including possibly a GI evaluation may be warranted. ER warnings were given for any significant worsening.
[2018-06-16 23:45] VITALS: TEMP 98.9; O2SAT 100
== END 2018-06-16 23:46 | disposition home or self-care (01) ==
LOC: ER 22:56
DX: K21.0 Gastro-esophageal reflux disease with esophagitis (principal); R07.1 Chest pain on breathing; J45.909 Unspecified asthma, uncomplicated; Z79.899 Other long term (current) drug therapy; Z87.891 Personal history of nicotine dependence
CPT/HCPCS: 93005; J3420

== ENCOUNTER → 2018-06-26 | Outpatient (CLI) | payer OTHER | LOC: LAB.O 11:04 | PROVIDERS: ATTEND Nurse Practitioner Family | DX: E53.8 Deficiency of other specified B group vitamins (principal); R53.83 Other fatigue; D64.9 Anemia, unspecified; E55.9 Vitamin D deficiency, unspecified; R10.11 Right upper quadrant pain ==

== ENCOUNTER → 2018-06-30 | Outpatient (CLI) | payer OTHER ==
--- NOTE | 2018-06-30 10:44 | US ---
EXAM DESCRIPTION: Gall Bladder CLINICAL HISTORY: 23 years Female, RUQ PAIN COMPARISON: CT abdomen and pelvis dated 09/01/2017. TECHNIQUE: Multiple transverse and longitudinal static sonographic images through the right upper quadrant of the abdomen were obtained. FINDINGS: Visualized portions of the pancreas appear normal. The liver demonstrates normal size and echogenicity with no intrahepatic biliary ductal dilatation. No focal masses are identified sonographically. The main portal vein is patent. The gallbladder is well distended with no gross abnormality. No evidence of wall thickening or hyperemia or pericholecystic fluid. The common duct is nondilated and measures 2.3 mm. The right kidney measures 9.4 x 4.1 x 5.2 cm. No hydronephrosis or perinephric fluid collections. IMPRESSION: Normal ultrasound of the right upper quadrant of the abdomen. Electronically signed by: Zofia Caballero MD 06/30/2018 10:42 AM CDT
== END ==
LOC: US 09:00
PROVIDERS: ATTEND Nurse Practitioner Family
DX: R10.11 Right upper quadrant pain (principal)

== ENCOUNTER 2018-07-24 15:48 | Emergency (ER) | payer OTHER ==
--- NOTE | 2018-07-24 16:16 | ED.PDOC ---
History of Present Illness - General Chief Complaint: Eye Problems Stated Complaint: eye discharge Time Seen by Provider: 07/24/18 16:07 Source: patient Exam Limitations: no limitations - History of Present Illness Initial Comments: Patient presents after having mucous exudate in her right eye upon wakening. She said it was itchy for a little while. It has not been red today nor has there been any more exudate. She has been around several children that have "pink eye". No other symptoms. Timing/Duration: 4-6 hours Severity: mild Improving Factors: nothing Worsening Factors: nothing Associated Symptoms: denies symptoms Allergies/Adverse Reactions: Allergies NO KNOWN ALLERGY Allergy (Verified 04/04/18 14:41) Home Medications: Ambulatory Orders Albuterol Inhaler [Ventolin Hfa Inhaler] 1 puff INH 04/04/18 Cyclobenzaprine HCl [Flexeril] 5 mg PO TID PRN #30 tab 04/04/18 Fluticasone/Salmeterol 250/50 [Advair Diskus] 1 puff INH 04/04/18 predniSONE [Prednisone] 20 mg PO DAILY #7 tab 04/04/18 Omeprazole 40 mg PO DAILY #90 cap 06/16/18 Sucralfate Tab [Carafate Tab] 1 gm PO QID #120 tab 06/16/18 Tramadol HCl 50 mg PO Q8HR PRN #20 tab 06/16/18 Review of Systems - Review of Systems Constitutional: States: no symptoms reported EENTM: States: see HPI Respiratory: States: no symptoms reported Cardiology: States: no symptoms reported Gastrointestinal/Abdominal: States: no symptoms reported Genitourinary: States: no symptoms reported Musculoskeletal: States: no symptoms reported Skin: States: no symptoms reported Neurological: States: no symptoms reported Endocrine: States: no symptoms reported Hematologic/Lymphatic: States: no symptoms reported Past Medical History (General) - Patient Medical History Hx Asthma: Yes Hx Cardiac Disorders: No Hx Congestive Heart Failure: No Hx Hypertension: No Hx Diabetes: No - Vaccination History Hx Tetanus, Diphtheria Vaccination: No Hx Influenza Vaccination: No Hx Pneumococcal Vaccination: No - Social History Hx Tobacco Use: Yes Hx Alcohol Use: Yes Hx Substance Use: No Hx Substance Use Treatment: No Hx Depression: No - Female History Patient : No - IUD Family Medical History - Family History Mother Family History: Unknown Living Status: Unknown Hx Family Asthma: Yes - brother Physical Exam - Physical Exam General Appearance: Alert Eye Exam: bilateral normal Ears, Nose, Throat: hearing grossly normal, normal ENT inspection, normal pharynx Neck: non-tender, full range of motion, supple Respiratory: lungs clear, normal breath sounds Cardiovascular/Chest: normal peripheral pulses, regular rate, rhythm Gastrointestinal/Abdominal: normal bowel sounds, non tender, soft Departure - Departure Clinical Impression: Watery eyes Disposition: Discharge to Home or Self Care Condition: Excellent Departure Forms: ED Discharge - Pt. Copy, Patient Portal Self Enrollment Instructions: Conjunctivitis ([place]) Diet: resume usual diet Activity: increase activity as tolerated Referrals: Kavitha Collins, AUTOMAT[employer]ACHINES SUPERVISOR [Primary Care Provider] - 1-2 Weeks Home Medications: Ambulatory Orders Albuterol Inhaler [Ventolin Hfa Inhaler] 1 puff INH 04/04/18 Cyclobenzaprine HCl [Flexeril] 5 mg PO TID PRN #30 tab 04/04/18 Fluticasone/Salmeterol 250/50 [Advair Diskus] 1 puff INH 04/04/18 predniSONE [Prednisone] 20 mg PO DAILY #7 tab 04/04/18 Omeprazole 40 mg PO DAILY #90 cap 06/16/18 Sucralfate Tab [Carafate Tab] 1 gm PO QID #120 tab 06/16/18 Tramadol HCl 50 mg PO Q8HR PRN #20 tab 06/16/18 Additional Instructions: Return to the E.R. for pain in the eyes, loss of vision, or large amounts of mucous in the eye.
[2018-07-24 16:20] VITALS: BP 115/82; TEMP 98.9; O2SAT 100
== END 2018-07-24 16:40 | disposition home or self-care (01) ==
LOC: ER 15:48
DX: H57.8 Other specified disorders of eye and adnexa (principal); J45.909 Unspecified asthma, uncomplicated; Z87.891 Personal history of nicotine dependence

== ENCOUNTER 2018-09-17 20:16 | Emergency (ER) | payer OTHER ==
[2018-09-17 20:54] VITALS: TEMP 98.8; O2SAT 100
[2018-09-17] MEDS ORDERED: CYCLOBENZAPRINE HCL 10 MG TAB PO ONE (20:54)
[2018-09-17] MEDS ORDERED: KETOROLAC TROMETHAMINE INJ 60 MG/2 ML VIAL IM ONE (20:54)
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
[2018-09-17 22:28] VITALS: BP 113/77
== END 2018-09-17 22:31 | disposition home or self-care (01) ==
LOC: ER 20:16
DX: S80.02XA Contusion of left knee, initial encounter (principal); M25.512 Pain in left shoulder; M54.2 Cervicalgia; M25.551 Pain in right hip; R42 Dizziness and giddiness; R07.1 Chest pain on breathing; M54.5 Low back pain; J45.909 Unspecified asthma, uncomplicated; F17.290 Nicotine dependence, other tobacco product, uncomplicated; V49.88XA Car occupant (driver) (passenger) injured in other specified transport accidents, initial encounter; Y92.410 Unspecified street and highway as the place of occurrence of the external cause
CPT/HCPCS: 70450; 71250; 72125; 73560; 74176; J1885

== ENCOUNTER → 2019-05-14 | Outpatient (CLI) | payer OTHER | LOC: YCFC.O 16:02 | PROVIDERS: ATTEND Nurse Practitioner | DX: R11.0 Nausea (principal); R42 Dizziness and giddiness ==

== ENCOUNTER 2019-09-08 18:04 | Emergency (ER) | payer OTHER ==
--- NOTE | 2019-09-08 18:29 | ED.PDOC ---
History of Present Illness - General Chief Complaint: Allergic Reaction Time Seen by Provider: 09/08/19 18:25 Source: patient Exam Limitations: no limitations - History of Present Illness Initial Comments: 24 yo F who presents for a sore in her mouth after eating tomatoes on Saturday night in a stew. Pt has a hx of these sx with eating tomatoes in the past. Reports pain to the point where she is having a hard time eating now. Has taken Benadryl which has seemed to help. Denies any URI sx, throat swelling, SOB, CP, wheezing, diarrhea. Allergies/Adverse Reactions: Allergies NO KNOWN ALLERGY Allergy (Verified 09/17/18 20:53) Home Medications: Ambulatory Orders Sucralfate Tab [Carafate Tab] 1 gm PO QID #120 tab 06/16/18 Cyclobenzaprine HCl [Flexeril] 10 mg PO TID #15 tab 09/17/18 Ibuprofen 800 mg PO BID #20 tab 09/17/18 Tramadol HCl [Ultram] 50 mg PO TID PRN #20 tab 09/17/18 Review of Systems - Review of Systems Constitutional: Denies: chills, fever EENTM: States: mouth pain. Denies: ear pain, nose congestion, throat pain, throat swelling Respiratory: Denies: short of breath, wheezing Cardiology: Denies: chest pain, palpitations Gastrointestinal/Abdominal: Denies: abdominal pain, diarrhea, nausea, vomiting Skin: Denies: lesions, rash Neurological: Denies: headache Past Medical History (General) - Patient Medical History Hx Seizures: No Hx Stroke: No Hx Dementia: No Hx Asthma: Yes Hx of COPD: No Hx Cardiac Disorders: No Hx Congestive Heart Failure: No Hx Pacemaker: No Hx Hypertension: No Hx Thyroid Disease: No Hx Diabetes: No Hx Gastroesophageal Reflux: No Hx Renal Disease: No Hx Cancer: No Hx of HIV: No Hx Hepatitis C: No Hx MRSA: No - Vaccination History Hx Tetanus, Diphtheria Vaccination: Yes - 08/2018 Hx Influenza Vaccination: No Hx Pneumococcal Vaccination: No - Social History Hx Tobacco Use: Yes - vapes Hx Alcohol Use: Yes Hx Substance Use: No Hx Substance Use Treatment: No Hx Depression: No - Female History Patient : No - IUD Family Medical History - Family History Mother Family History: Unknown Living Status: Unknown Hx Family Asthma: Yes - brother Physical Exam - Physical Exam General Appearance: Alert, Comfortable, No apparent distress, Well Developed, Well Nourished Ears, Nose, Throat: other - Canker sore to R underside of tongue, no other lesions noted, no uvula swelling, no tongue edema, airway patent Neck: non-tender, full range of motion, supple, normal inspection Respiratory: lungs clear, normal breath sounds, no respiratory distress, no accessory muscle use Cardiovascular/Chest: normal peripheral pulses, regular rate, rhythm, no murmur Gastrointestinal/Abdominal: non tender, soft Skin Exam: other - no rash Progress - Progress Progress: 09/08/19 18:29 I have explained and reviewed all results with the pt. Pt was given magic mouthwash in ED, and d/c home with such with instruction to use BID in a swish and spit manor. I explained that emergent conditions may arise and to return to the ER for new, worsening, or any persistent conditions. I've explained the importance of f/u for recheck. All questions and concerns addressed at this time. Pt understands and agrees with plan. Pt well appearing, NAD, is stable for discharge. Tamra Fernandez MD Emergency Medicine Physician Billing Number [id number] Departure - Departure Clinical Impression: Canker sores oral Allergic reaction Qualifiers: Encounter type: initial encounter Qualified Code(s): T78.40XA - Allergy, unspecified, initial encounter Time of Disposition: 18:30 Disposition: Discharge to Home or Self Care Condition: Fair Health Concerns: Condition: stable Departure Forms: ED Discharge - Pt. Copy, Patient Portal Self Enrollment Instructions: Anaphylaxis (DC), Mouth Sores (DC) Referrals: Kavitha Collins NP [Primary Care Provider] - 1-5 Days Home Medications: Ambulatory Orders Sucralfate Tab [Carafate Tab] 1 gm PO QID #120 tab 06/16/18 Cyclobenzaprine HCl [Flexeril] 10 mg PO TID #15 tab 09/17/18 Ibuprofen 800 mg PO BID #20 tab 09/17/18 Tramadol HCl [Ultram] 50 mg PO TID PRN #20 tab 09/17/18 Additional Instructions: Follow up: [facility] As needed, if symptoms worsen
[2019-09-08] MEDS ORDERED: LIDOCAINE HCL 2% (MOUTH-THROAT) 15 ML UD ONE (18:54)
[2019-09-08] MEDS ORDERED: diphenhydrAMINE HCL 12.5 MG/5 ML UD ONE (18:54)
[2019-09-08] MEDS ORDERED: ALUMINUM & MAGNESIUM HYDROXIDE 30 ML UD ONE (18:55)
[2019-09-08] MEDS: LIDOCAINE VISCOUS 2% 15 ML, diphenhydrAMINE HCL 37.5 MG, NYSTATIN SUSPENSION 15 ML, ALU... PO PRN ×4 (18:55)
[2019-09-08] MEDS ORDERED: NYSTATIN SUSPENSION 500,000/5 ML UD ONE (18:55)
[2019-09-08 19:03] VITALS: TEMP 99.5; O2SAT 100
[2019-09-08] MEDS: LIDOCAINE HCL 2% (MOUTH-THROAT) 15 ML UD MT ONE (19:07)
[2019-09-08 19:20] VITALS: BP 114/88
== END 2019-09-08 19:17 | disposition home or self-care (01) ==
LOC: ER 18:04
DX: K12.0 Recurrent oral aphthae (principal); T78.40XA Allergy, unspecified, initial encounter; J45.909 Unspecified asthma, uncomplicated; Z87.891 Personal history of nicotine dependence

== ENCOUNTER 2019-09-25 19:40 | Emergency (ER) | payer OTHER ==
[2019-09-25 20:06] VITALS: TEMP 98.4
--- NOTE | 2019-09-25 20:15 | ED.PDOC ---
History of Present Illness - General Chief Complaint: ENT Problem Stated Complaint: throat pain to right side Time Seen by Provider: 09/25/19 20:05 Source: patient Exam Limitations: no limitations - History of Present Illness Initial Comments: The patient's 24-year-old female presenting to the emergency room secondary to a feeling of mild swelling to the upper anterior right neck just below the angle of the jaw. She is feeling a little bit of tingling to the right side of her face. No rash. No fever. No vision changes. No difficulty swallowing. No breathing difficulty. This started yesterday. On exam she does have some very mild lymphadenopathy to the anterior right neck. She does have some mildly poor dentition but no obvious infection. No obvious sinusitis. Right tympanic membrane is clear. I see no evidence of any cellulitis. Timing/Duration: 24 hours Severity: mild Improving Factors: nothing Worsening Factors: nothing Associated Symptoms: denies symptoms Allergies/Adverse Reactions: Allergies NO KNOWN ALLERGY Allergy (Verified 09/17/18 20:53) Home Medications: Ambulatory Orders Sucralfate Tab [Carafate Tab] 1 gm PO QID #120 tab 06/16/18 Cyclobenzaprine HCl [Flexeril] 10 mg PO TID #15 tab 09/17/18 Ibuprofen 800 mg PO BID #20 tab 09/17/18 Tramadol HCl [Ultram] 50 mg PO TID PRN #20 tab 09/17/18 Review of Systems - Review of Systems Constitutional: States: no symptoms reported EENTM: States: see HPI Respiratory: States: no symptoms reported Cardiology: States: no symptoms reported Gastrointestinal/Abdominal: States: no symptoms reported Genitourinary: States: no symptoms reported Musculoskeletal: States: no symptoms reported Skin: States: no symptoms reported Neurological: States: no symptoms reported Endocrine: States: no symptoms reported Hematologic/Lymphatic: States: swollen glands All other Systems: No Change from Baseline Past Medical History (General) - Patient Medical History Hx Seizures: No Hx Stroke: No Hx Dementia: No Hx Asthma: Yes Hx of COPD: No Hx Cardiac Disorders: No Hx Congestive Heart Failure: No Hx Pacemaker: No Hx Hypertension: No Hx Thyroid Disease: No Hx Diabetes: No Hx Gastroesophageal Reflux: No Hx Renal Disease: No Hx Cancer: No Hx of HIV: No Hx Hepatitis C: No Hx MRSA: No Surgical History: appendectomy, tonsillectomy, other - Vaccination History Hx Tetanus, Diphtheria Vaccination: Yes - 08/2018 Hx Influenza Vaccination: No Hx Pneumococcal Vaccination: No - Social History Hx Tobacco Use: Yes - vapes Hx Alcohol Use: Yes Hx Substance Use: No Hx Substance Use Treatment: No Hx Depression: No - Female History Patient : No - IUD Family Medical History - Family History Mother Family History: Unknown Living Status: Unknown Hx Family Asthma: Yes - brother Physical Exam - Physical Exam General Appearance: Alert, Comfortable, No apparent distress Eye Exam: bilateral normal Ears, Nose, Throat: hearing grossly normal, normal pharynx Neck: full range of motion, lymphadenopathy (R), other - see history of present illness. 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 I do not see a source for infection at this point. For now we'll simply recommend observation for the patient. She does need follow-up with her primary care doctor next week for repeat evaluation. Obviously if symptoms change then another evaluation will need to be done. As is, she should expect to have some mild swelling there for a couple of weeks. motrin may reduce discomfort. [email or web address] [id number] Departure - Departure Clinical Impression: Lymphadenopathy of head and neck Disposition: Discharge to Home or Self Care Condition: Fair Departure Forms: ED Discharge - Pt. Copy, Patient Portal Self Enrollment Instructions: Lymphadenitis (DC) Diet: regular diet Activity: increase activity as tolerated Referrals: Kavitha Collins NP [Primary Care Provider] - 1-5 Days Home Medications: Ambulatory Orders Sucralfate Tab [Carafate Tab] 1 gm PO QID #120 tab 06/16/18 Cyclobenzaprine HCl [Flexeril] 10 mg PO TID #15 tab 09/17/18 Ibuprofen 800 mg PO BID #20 tab 09/17/18 Tramadol HCl [Ultram] 50 mg PO TID PRN #20 tab 09/17/18 Additional Instructions: the patient's 24-year-old female presenting to the emergency room secondary to some mild right submandibular versus anterior cervical lymphadenopathy. I do not see a source for infection at this point. For now we'll simply recommend observation for the patient. She does need follow-up with her primary care doctor next week for repeat evaluation. Obviously if symptoms change then another evaluation will need to be done. As is, she should expect to have some mild swelling there for a couple of weeks. motrin may reduce discomfort.
[2019-09-25 20:22] VITALS: BP 125/83; O2SAT 96
== END 2019-09-25 20:20 | disposition home or self-care (01) ==
LOC: ER 19:40
DX: R59.0 Localized enlarged lymph nodes (principal); J45.909 Unspecified asthma, uncomplicated; Z87.891 Personal history of nicotine dependence

== ENCOUNTER 2019-10-13 16:40 | Emergency (ER) | payer OTHER ==
[2019-10-13 17:06] VITALS: TEMP 98.7; O2SAT 96
[2019-10-13] MEDS ORDERED: ACETAMINOPHEN W/COD #3 TAB 1 EA TAB PO ONE (17:19)
--- NOTE | 2019-10-13 17:22 | ED.PDOC ---
History of Present Illness - General Chief Complaint: Lower Extremity Injury Stated Complaint: left knee pain Time Seen by Provider: 10/13/19 17:18 Additional Information: Patient is a 24-year-old female who presents to the ED with chief complaint of left knee injury. Patient was at home earlier this morning on the porch and she indicates she had a mechanical slip and fall due to stepping on a wet icy patch. Patient is unsure if she landed on her knee or twisted her knee. Patient is able to walk with a limp. Patient rates her pain as an 8 out of 10, sharp. Patient denies any other injury including head injury, neck injury or loss of consciousness. Patient has no other complaints at this time. - History of Present Illness Allergies/Adverse Reactions: Allergies NO KNOWN ALLERGY Allergy (Verified 09/17/18 20:53) Home Medications: Ambulatory Orders Sucralfate Tab [Carafate Tab] 1 gm PO QID #120 tab 06/16/18 Cyclobenzaprine HCl [Flexeril] 10 mg PO TID #15 tab 09/17/18 Ibuprofen 800 mg PO BID #20 tab 09/17/18 Tramadol HCl [Ultram] 50 mg PO TID PRN #20 tab 09/17/18 Ibuprofen [Motrin] 600 mg PO Q6H PRN #20 tab 10/13/19 Review of Systems - Review of Systems Constitutional: States: no symptoms reported Respiratory: States: no symptoms reported Cardiology: States: no symptoms reported Gastrointestinal/Abdominal: States: no symptoms reported Musculoskeletal: States: see HPI. Denies: back pain, joint swelling, muscle pain, neck pain Skin: Denies: rash All other Systems: Reviewed and Negative Past Medical History (General) - Patient Medical History Hx Seizures: No Hx Stroke: No Hx Dementia: No Hx Asthma: Yes Hx of COPD: No Hx Cardiac Disorders: No Hx Congestive Heart Failure: No Hx Pacemaker: No Hx Hypertension: No Hx Thyroid Disease: No Hx Diabetes: No Hx Gastroesophageal Reflux: No Hx Renal Disease: No Hx Cancer: No Hx of HIV: No Hx Hepatitis C: No Hx MRSA: No Surgical History: tonsillectomy - Vaccination History Hx Tetanus, Diphtheria Vaccination: Yes - 08/2018 Hx Influenza Vaccination: No Hx Pneumococcal Vaccination: No - Social History Hx Tobacco Use: No Hx Alcohol Use: Yes Hx Substance Use: No Hx Substance Use Treatment: No Hx Depression: No - Female History Patient is a Female of Child Bearing Age (10 -59 yrs old): Yes - has a Mirena implant Patient : No - IUD Family Medical History - Family History Mother Family History: Unknown Living Status: Unknown Hx Family Asthma: Yes - brother Physical Exam - Physical Exam General Appearance: Alert, Comfortable, No apparent distress Eyes, Ears, Nose, Throat: normal ENT inspection Neck: full range of motion, supple Cardiovascular/Respiratory: regular rate, rhythm, no M/R/G Gastrointestinal/Abdominal: non-tender Back: normal inspection Thigh/Hip: normal inspection, non-tender Knee: normal inspection, other - negative effusion. Negative abrasion. Range of motion 0-90limited by pain. Negative anterior drawer/Darius. Stable Varus/valgus. Ankle: normal inspection, non-tender Foot: normal inspection, non-tender Neuro/Tendon: normal sensation, normal motor functions, normal tendon functions Mental Status: alert, oriented x 3 Skin: normal color, warm/dry Progress - Progress Progress: 10/13/19 17:31 Differential diagnosis includes but is not limited to fracture, sprain, contusion, dislocation. 10/13/19 19:05 Patient feeling better at this time status post analgesics. Her XR is unremarkable and clinically patient with contusion only. We will place an Zackary wrap on knee at patient's request and DC with analgesics, and patient to rest and follow-up with her PCP. Vital signs stable, patient NAD and looks clinically well, and I believe is safe for discharge with outpatient follow-up. Follow-up instructions, discharge instructions and return to ED precautions discussed with patient. Patient voices understanding and willingness to comply with instructions. All laboratory and radiographic results have been discussed with the patient, and all questions answered. Patient is happy with plan. Departure - Departure Clinical Impression: Contusion of knee, left Qualifiers: Encounter type: initial encounter Qualified Code(s): S80.02XA - Contusion of left knee, initial encounter Disposition: Discharge to Home or Self Care Departure Forms: ED Discharge - Pt. Copy, Patient Portal Self Enrollment Instructions: DI for Knee Pain, Contusion (DC), Knee Sprain (DC) Referrals: Gilma Turner FNP [Primary Care Provider] - 1-2 Weeks Prescriptions: Ibuprofen [Motrin] 600 mg PO Q6H PRN #20 tab PRN Reason: Pain Home Medications: Ambulatory Orders Sucralfate Tab [Carafate Tab] 1 gm PO QID #120 tab 06/16/18 Cyclobenzaprine HCl [Flexeril] 10 mg PO TID #15 tab 09/17/18 Ibuprofen 800 mg PO BID #20 tab 09/17/18 Tramadol HCl [Ultram] 50 mg PO TID PRN #20 tab 09/17/18 Ibuprofen [Motrin] 600 mg PO Q6H PRN #20 tab 10/13/19
--- NOTE | 2019-10-13 19:08 | RAD ---
EXAM DESCRIPTION: Knee,Left Complete CLINICAL HISTORY: 24 years Female injury, fall COMPARISON: None TECHNIQUE: AP, lateral and sunrise views of the left knee are obtained. FINDINGS: OSSEOUS: There is no evidence of subluxation/dislocation. There is no evidence of acute fracture or osteolytic/osteoblastic lesions. There is mild to moderate narrowing of the medial compartment of the knee as well as minimal narrowing of the lateral aspect of the patellofemoral compartment. There is no evidence of degenerative osteophytosis or sclerosis. There is no evidence of marginal erosive changes to suggest an inflammatory arthritis. SOFT TISSUE: There is no significant soft tissue swelling or mass. No evidence of significant soft tissue calcifications. No radiopaque foreign bodies. There is no evidence of a suprapatellar effusion. IMPRESSION: No acute osseous abnormalities. Remainder of findings as described above. Electronically signed by: Bri Fernández MD 10/13/2019 5:40 PM [facility]
[2019-10-13 19:18] VITALS: BP 153/89
== END 2019-10-13 19:18 | disposition home or self-care (01) ==
LOC: ER 16:40
DX: S80.02XA Contusion of left knee, initial encounter (principal); J45.909 Unspecified asthma, uncomplicated; W00.0XXA Fall on same level due to ice and snow, initial encounter; Y92.008 Other place in unspecified non-institutional (private) residence as the place of occurrence of the external cause; Z79.899 Other long term (current) drug therapy

== ENCOUNTER → 2019-11-27 | Outpatient (CLI) | payer OTHER | LOC: YCFC.O 11:47 | PROVIDERS: ATTEND Nurse Practitioner | DX: F41.8 Other specified anxiety disorders (principal) ==